=== PATIENT | female | born 1985 | race Caucasian/White ===

== ENCOUNTER 2020-10-31 09:45 | Emergency (ER) | payer MEDICAID ==
[~2020-10-31] VITALS: Ht 152.4 cm; Wt 58.6 kg
[2020-10-31 10:07] VITALS: BP 137/80
[2020-10-31 10:31] LABS: URINE HCG NEGATIVE (NEG)
[2020-10-31 10:34] LABS: CLARITY,URINE CLOUDY (Clear); COLOR,URINE YELLOW (Yellow); GLUCOSE, URINE NEGATIVE (Neg); KETONES,URINE TRACE mg/dl (Neg); LEUKOCYTE ESTERASE ,URINE SMALL (Neg); NITRITES, URINE POSITIVE (Neg); OCCULT BLOOD,URINE MODERATE (Neg); PH,URINE 6.5 (4.8-8.0); PROTEIN,URINE TRACE mg/dl (Neg); UROBILINOGEN,URINE 0.2 E.U/dL (0.2-1.0)
[2020-10-31 10:42] LABS: BASOPHILS % (AUTO) 0.2 % (0-1); EOSINOPHILS # (AUTO) 0.1 X10'3 (0-0.9); EOSINOPHILS % (AUTO) 0.3 % (0-6); HEMATOCRIT 39.1 % (35.0-45.0); HEMOGLOBIN 13.2 g/dl (12.0-16.0); LYMPHOCYTES % (AUTO) 6.1 % (21-51); MEAN CORPUSCULAR HEMOGLOBIN 31.7 PG (27.0-31.0); MEAN CORPUSCULAR HGB CONC 33.7 g/dL (33.0-36.5); MEAN CORPUSCULAR VOLUME 93.9 FL (78-98); MEAN PLATELET VOLUME 7.2 FL (7.4-10.4); MONOCYTES # (AUTO) 2.7 X10'3 (0-0.9); NEUTROPHILS # (AUTO) 12.8 X10'3 (1.8-7.7); NEUTROPHILS % (AUTO) 77.4 % (42-75); PLATELET COUNT 233 X10'3 (140-440); RED BLOOD COUNT 4.16 X10'6 (4.20-5.60); WHITE BLOOD COUNT 16.5 X10'3 (4.5-11.0)
[2020-10-31 10:52] LABS: UA COLLECTION TYPE CLN CATCH MIDSTREAM
[2020-10-31 10:58] LABS: ALANINE AMINOTRANSFERASE 18 U/L (12-78); ALBUMIN 3.6 G/DL (3.4-5.0); ALBUMIN/GLOBULIN RATIO 0.8 (1.1-1.5); ALKALINE PHOSPHATASE 71 IU/L (46-116); ANION GAP 9 (8-16); ASPARTATE AMINO TRANSFERASE 13 U/L (10-37); BILIRUBIN,TOTAL 0.6 MG/DL (0.1-1.0); BLOOD UREA NITROGEN 5 MG/DL (7-18); BUN/CREATININE RATIO 7.1 (6.6-38.0); CHLORIDE 100 MMOL/L (99-107); GLUCOSE 95 MG/DL (70-104); LIPASE 68 U/L (73-393); POTASSIUM 3.9 MMOL/L (3.5-5.1); SODIUM 136 MMOL/L (135-145); TOTAL CARBON DIOXIDE 26.6 MMOL/L (24-32); TOTAL PROTEIN 7.9 G/DL (6.4-8.2); eGFR > 90 ML/MIN
[2020-10-31 11:05] LABS: BACTERIA,URINE 4+ /HPF (Neg)
[2020-10-31 11:06] LABS: SQUAMOUS EPITHELIAL CELL,UR FEW /LPF (FEW)
[2020-10-31 11:07] LABS: WBC CLUMPS,URINE FEW /HPF (NEGATIVE)
[2020-10-31 11:12] LABS: TOTAL CELLS COUNTED 100
[2020-10-31 11:14] LABS: PLATELET ESTIMATE NORMAL
[2020-10-31] MEDS ORDERED: iohexol 300mg/ml 100ml inj. ONE (11:20)
[2020-10-31 11:30] LABS: C-REACTIVE PROTEIN 25.08 MG/DL (0.0-0.5)
[2020-10-31] MEDS ORDERED: ondansetron/PF 4mg/2ml inj IV ONE ×2 (11:40→14:50)
[2020-10-31] MEDS ORDERED: morphine 4 MG/ML inj SYRINge IV ONE ×2 (11:40→14:50)
[2020-10-31] MEDS ORDERED: normal saline 1000ml 1,000 ML IV ONE ×2 (12:40)
[2020-10-31] MEDS ORDERED: CefTRIAXone/D5W-Rocephin 1gm 50 ML IV ONE (12:40)
[2020-10-31] MEDS ORDERED: HYDR-4383 PO ×2 (13:05→14:49)
[2020-10-31] MEDS ORDERED: CEFD300C3 PO (13:05)
== END 2020-10-31 15:27 | disposition home or self-care (01) ==
LOC: ER 09:47
DX: N12 Tubulo-interstitial nephritis, not specified as acute or chronic (principal); Z79.899 Other long term (current) drug therapy
CPT/HCPCS: 36415; 74177; 80053; 81001; 81025; 83690; 85007; 85025; 86140; 87088; 96365; 96375; 96376; 99285; J0696; J2270; J2405; J7030; Q9967; 87077; 87186